=== PATIENT | female | born 1935 ===

== ENCOUNTER 2019-06-04 19:15 | Emergency (ER) | payer OTHER ==
[~2019-06-04] VITALS: Ht 152.4 cm; Wt 58.1 kg
[2019-06-04] MEDS ORDERED: ZOLOFT25 MG (19:27)
[2019-06-05] MEDS ORDERED: TAMS0.4C PO (04:35)
[2019-06-05] MEDS ORDERED: MOBIC15 MG PO (04:35)
== END 2019-06-05 04:52 | disposition home or self-care (01) ==
LOC: ER 19:15
DX: N20.2 Calculus of kidney with calculus of ureter (principal); K80.80 Other cholelithiasis without obstruction